=== PATIENT | female | born 1985 | race Hispanic/Latino ===

== ENCOUNTER → 2022-11-12 | Outpatient (CLI) | payer BC ==
[~2022-11-12] MED LIST: IOHEXOL-350 75 ML VIAL IV ONE
== END | disposition home or self-care (01) ==
LOC: RAH 10:52
PROVIDERS: ATTEND Obstetrics & Gynecology
DX: N20.0 Calculus of kidney (principal); K57.30 Diverticulosis of large intestine without perforation or abscess without bleeding; R16.0 Hepatomegaly, not elsewhere classified; Z90.49 Acquired absence of other specified parts of digestive tract
CPT/HCPCS: 74170; Q9967

== ENCOUNTER → 2023-01-23 | Outpatient (CLI) | payer BC ==
[2023-01-23 15:15] LABS: BASOPHILS % (AUTO) 0.5 % (0.0-5.0); EOSINOPHILS % (AUTO) 1.5 % (0.0-8.0); HEMATOCRIT 41.4 % (36-48); MEAN CORPUSCULAR HEMOGLOBIN 30.5 pg (27.0-33.0); MEAN CORPUSCULAR HGB CONC 33.6 g/dL (32.0-36.0); MEAN CORPUSCULAR VOLUME 90.8 fL (79-99); MONOCYTES % (AUTO) 4.8 % (3.0-13.0); NEUTROPHILS % (AUTO) 66.8 % (40.0-77.0); PLATELET COUNT (AUTO) 337 K/uL (130-400); RED BLOOD CELL COUNT(AUTO) 4.56 MIL/uL (4.00-5.50); RED CELL DISTRIBUTION WIDTH 13.6 % (11.0-15.5); WHITE BLOOD COUNT (AUTO) 10.8 K/uL (4.8-10.8)
[2023-01-23 15:26] LABS: INR 0.94 (0.85-1.15)
[2023-01-23 15:42] LABS: ALBUMIN 3.5 g/dL (3.5-5.0); CREATININE 0.7 mg/dL (0.5-1.5); TOTAL PROTEIN, SERUM 7.5 g/dL (6.0-8.3)
[2023-01-23 16:01] LABS: POTASSIUM 2.9 mmol/L (3.5-5.1)
[2023-01-23 16:17] LABS: PARTIAL THROMBOPLASTIN TIME 29.6 SEC (26.3-35.5)
== END | disposition home or self-care (01) ==
LOC: DAH 10:00 → EDSTATUS 01-26 07:30 → DAH 01-26 10:00
PROVIDERS: ATTEND Obstetrics & Gynecology
DX: N92.0 Excessive and frequent menstruation with regular cycle (principal); Z20.822 Contact with and (suspected) exposure to COVID-19; R10.2 Pelvic and perineal pain; Z79.01 Long term (current) use of anticoagulants; Z53.8 Procedure and treatment not carried out for other reasons
CPT/HCPCS: 86900; 87426; 80053; 84703; 85025; 85610; 85730; 86850; 86901; 36415; A6260

== ENCOUNTER → 2024-11-16 | Outpatient (CLI) | payer BC ==
[~2024-11-16] MED LIST changes: +GADOTERATE MEGLUMINE 10 MMOL/20 ML VIAL IV ONE; -IOHEXOL-350 75 ML VIAL IV ONE
--- NOTE | 2024-11-16 20:20 | HMCIMG ---
MR ABDOMEN W/WO CON HISTORY: Hepatomegaly COMPARISON: CT from November 12, 2022 TECHNIQUE: MRI of the abdomen was performed utilizing multiple pulse sequences in axial, coronal and sagittal planes. Patient was given 20 cc of prior scan through intravenous route. Dynamic imaging technique was used. FINDINGS: No pleural effusion is seen bilaterally. The liver is enlarged measuring 25 cm. Spleen, adrenal glands and pancreas are unremarkable. Both kidneys are seen without hydronephrosis. There is a 18 mm right posterior hepatic cyst. Subcentimeter hepatic cysts are also seen. No enhancing hepatic masses seen. There are motion artifacts degrading the image quality. There is no evidence of adenopathy or ascites. IMPRESSION: 1. Markedly enlarged liver with fatty changes. No enhancing mass is seen. There is perihepatic cyst measuring 18 mm
== END | disposition home or self-care (01) ==
LOC: RAH 14:50
PROVIDERS: ATTEND Surgery Surgical Oncology
DX: K76.0 Fatty (change of) liver, not elsewhere classified (principal); R16.0 Hepatomegaly, not elsewhere classified
CPT/HCPCS: 74183; A9575

== ENCOUNTER → 2025-07-04 | Outpatient (CLI) | payer BC ==
--- NOTE | 2025-07-04 22:23 | HMCIMG ---
EXAM: MR right Upper Extremity Without IV contrast, Humerus. CLINICAL HISTORY: R22.31 Localized swelling, mass and lump, right upper limb. TECHNIQUE: Multisequence, multiplanar magnetic resonance images of the right humerus were obtained without intravenous contrast. Series acquired: 11 - COR PD FS - TR: 2329.0 - TE: 24.2 - ET: 10.0 - Thk: 5.0 12 - COR T2 - TR: 5500.0 - TE: 67.2 - ET: 16.0 - Thk: 5.0 13 - COR STIR - TR: 4838.0 - TE: 48.7 - ET: 15.0 - Thk: 5.0 14 - SAG T2 - TR: 5498.0 - TE: 66.4 - ET: 14.0 - Thk: 5.0 15 - SAG STIR - TR: 5530.0 - TE: 48.7 - ET: 15.0 - Thk: 5.0 16 - SAG T1 - TR: 642.0 - TE: 11.8 - ET: 6.0 - Thk: 5.0 17 - AX STIR - TR: 6183.0 - TE: 50.3 - ET: 12.0 - Thk: 6.0 18 - AX T1 - TR: 625.0 - TE: 18.4 - ET: 3.0 - Thk: 6.0 19 - AX T2 - TR: 4194.0 - TE: 71.4 - ET: 17.0 - Thk: 6.0 20 - AX 2D MERGE - TR: 621.0 - TE: 13.5 - ET: 3.0 - Thk: 6.0 CONTRAST: None. COMPARISON: None provided. FINDINGS: SOFT TISSUES: No intramuscular or intravascular mass or focal intramuscular swelling is identified. No space-occupying soft-tissue lesion is seen along the visualized right humerus. There is focal subcutaneous and superficial fascial thickening with mild edema/enhancement pattern on fluid-sensitive sequences involving the posterolateral aspect of the mid arm, compatible with localized cellulitis. No drainable abscess, deep fascial involvement, or myositis is demonstrated. JOINTS: Shoulder and elbow joints are normally aligned without dislocation or significant effusion. BONES: No acute fracture, cortical destruction, or aggressive osseous lesion of the humerus or adjacent bony structures. Bone marrow signal is within normal limits. IMPRESSION: * Focal superficial cellulitis involving the posterolateral mid right arm without evidence of intramuscular abscess, space-occupying mass, or acute osseous involvement; correlation with clinical examination and laboratory markers of infection is recommended, and if symptoms progress or a fluid collection is clinically suspected, targeted ultrasound or repeat MRI can be considered if clinically warranted. * No acute osseous injury or intramuscular mass of the right humerus identified on this examination. /[place]
== END | disposition home or self-care (01) ==
LOC: RAH 11:47
PROVIDERS: ATTEND Family Medicine
DX: L03.113 Cellulitis of right upper limb (principal); R22.31 Localized swelling, mass and lump, right upper limb
CPT/HCPCS: 73218